=== PATIENT | male | born 1970 | race Caucasian/White ===

== ENCOUNTER 2020-02-08 23:32 | Observation (INO) ==
[2020-02-08] MEDS ORDERED: SODIUM CHLORIDE 0.9% 1000ML 1,000 ML IV ONE (23:47)
[2020-02-08] MEDS ORDERED: ONDANSETRON INJ 2 MG/ML 2 ML VIAL IV STA (23:47)
[2020-02-08] MEDS ORDERED: fentaNYL citrate 100 MCG/2 ML VIAL IV STA (23:47)
--- NOTE | 2020-02-08 23:52 | Emergency Department Note ---
Impression & Plan Spigelian hernia, Incarcerated hernia ED Provider Note Name: MARA REED Age: 49 Sex: M Arrives Via: Walk-In Informant: Patient, ED Provider: Jonny Vanegas MD Chief Complaint: Abdominal Pain Impression: Incarcerated Hernia Spigelian Hernia Medical Decision Making: Pleasant 49 yr old male with acute right abdominal pain this evening after mild right abdominal pain over the last week. History of left inguinal hernia repair a few decades ago with port site at location of pain on right. He has firm tender mass in right mid abdomen consistent with incarcerated hernia. CT emergently done reveals only fat in hernia site without bowel incarceration. He has no evidence of SBO at this time. Lactic Acid mildly elevated consistent with extremis he was in from pain on arrival as well as likely some from hernia which shows faint fat stranding. After narcotics he is feeling better but hernia non-reducible. Reviewed with Gen Surg who agrees with pain control and hospitalization and will further evaluate as inpatient. Patient not septic and pain has been controlled but requires IV narcotics. Patient and comfortable with plan. Prior Medical Record and Triage/Nursing Notes reviewed by Me Additional history obtained from chart Differentials:Appendicitis, testicular torsion, infections, diverticulitis, UTI, obstruction, mesenteric ischemia, aortic pathology, inflammatory bowel disease, renal colic, PUD, pancreatitis, biliary pathology, hernia, volvulus, constipation, as well as other pathologies. Vital Signs: reviewed and remarkable for HTN Interventions: saline lock, dilaudid 1mg IV x 2, Zofran 4mg IV, nss bolus 2L IV Labs:Reviewed and remarkable for mildly elevated lactic acid Imaging:[facility] Radiologist interpretation reviewed by me: "ADDENDUM - Added by Concepción Gonzalez MD on 02/09/2020 12:56 AM (-07:00) Right lateral abdominal wall fat-containing spigelian hernia with a narrow neck of 2 mm. . Fat component of the hernia measures 4.3 x 5.3 x 5.5 cm. Faint stranding within the fat is noted. CT ABDOMEN & PELVIS With Contrast: Contracted gallbladder. Scattered left side, mild sigmoid diverticulosis. Negative for diverticulitis. Normal appendix. Small bilateral renal cortical cysts. Left inguinal post hernia repair changes. 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 Moderately severe right and left L4-5 neural foramina stenosis. Radiologist: Concepción Gonzalez MD" Consults:Dr Deyvi Carias Gen Surg: Discussed incarcerated fat hernia with mild lactic acid elevation - hospitalist eval and pain control advised Dr Kodi Carias Hospitalist Plan: Disposition:Hospitalization. Condition: Good Blood pressure:Elevated - Referred to Hospitalist Prescriptions:none PDMP: n/a History of Present Illness:49 / male with right abdominal pain. 1 week of abdominal discomfort. RLQ and sharp in nature. Tonight severe pain radiating to back and left side as well. Associated nausea. Movement makes worse, rest makes slightly better. 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 No previous pain like this. Previous left inguinal hernia repair. No recent trauma nor injuries. No recent vomiting. Notes normal BM this morning. Denies chest pain, sob, cough, fevers, headache, neck pain, leg pain, rashes, swelling, syncope, nor other symptoms. ROS: See above HPI for pertinent positives & negatives. A total of 10 systems reviewed and were otherwise negative. Past Medical History:HTN, Anxiety Past Surgical History:Left inguinal Hernia repair, left foot surgery Family History:Mother/Father with cancer and CAD Social History:Lives with , occasional cigar, no cigarettes, occasional ETOH, no drugs. 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 EYES: No scleral icterus, unremarkable pupils. ENT: Mucous membranes moist, no nasal congestion. NECK: No masses appreciated, nomeningismus, trachea is midline. RESPIRATORY: No dyspnea. Clear to auscultation and equal bilaterally. No wheeze, no rhonchi. CARDIOVASCULAR: Regular rate and rhythm.No murmurs, rubs, gallops appreciated. GASTROINTESTINAL: Tennis ball sized firm mass with severe TTP Right mid abdomen, hyperactive bowel sounds, vague TTP rest of abdomen BACK: No midline tenderness, no CVA tenderness EXTREMITIES: Normal motion all extremities, no cyanosis, no edema. NEUROLOGIC: Alert and oriented, no acute motor or sensory deficits, no focal weakness, cranial nerves grossly intact. SKIN: No rash, no jaundice, no diaphoresis. PSYCH: Appropriate GCS: 15 ED Course: Times/Reassessments: improvement in pain, unable to reduce hernia, no vomiting Jonny Guilherme, MD Past Med/Surg History Social History Smoking Status: Current some day smoker Tobacco Type: Cigars Hx Alcohol Use: No Hx Substance Use: No Preferred Language: Telugu Communication Ability: Effective Neuropsychology Medical Consultant Required: No Beliefs That Will Affect Care: None marital status: Single Current Living Situation: Significant Other current occupational status: employed Other Information That Helps Us Care for You: No Feels Safe at Home: Yes Safety Concerns: Feels Safe At This Time Allergies Allergies Allergy/AdvReac Type Severity Reaction Status Date / Time Penicillins Allergy Severe SHORTNESS Verified 02/08/20 23:39 OF BREATH Home Meds Home Medications Medication Instructions Recorded Confirmed No Known Home Medications 02/08/20 02/08/20 Results & Data (ED) Vital Signs Vital Signs - 24 hr 02/08/20 23:36 02/09/20 00:48 02/09/20 01:15 Temperature 36.7 C Temperature Source Oral Pulse Rate 107 H Pulse Rate [Right Finger] 80 72 Respiratory Rate 24 15 20 Respiratory Effort / Characteristics Non-Labored Spontaneous Non-Labored Spontaneous Non-Labored Spontaneous Respiratory Depth Normal Normal Normal Respiratory Pattern Regular Blood Pressure 134/72 Blood Pressure [Right Arm] 137/85 141/87 H Blood Pressure Mean 92 Blood Pressure Mean [Right Arm] 102 105 Blood Pressure Position [Right Arm] Lying Lying Pulse Oximetry 98 98 99 Oxygen Delivery Method Room Air Room Air Room Air Sepsis New/Unexplained Change in Mental Status N/A Sepsis Action Taken by Nursing No Action Required Laboratory Data Result diagrams: 02/09/20 05:17 02/08/20 23:47 Lab Results 02/08/20 02/08/20 02/08/20 Range/Units 23:47 23:47 23:47 WBC 6.53 (4.8-10.8) K/uL RBC 4.91 (4.7-6.1) M/uL Hgb 15.6 (14.0-18.0) g/dL POC Hgb (14.0-18.0) g/dl Hct 45.5 (42-52) % POC Hct (42-52) % MCV 92.7 (80-100) fL MCH 31.8 (25-34) pg MCHC 34.3 (32-36) g/dL RDW Std Deviation 47.1 H (36.4-46.3) fL RDW Coeff of Annie 13.8 (11.5-14.5) % Plt Count 243 (130-400) K/uL MPV 10.9 H (7.4-10.4) fL Immature Gran % (Auto) 0.2 % Neut % (Auto) 66.7 % Lymph % (Auto) 20.8 % [place] % (Auto) 9.3 % Eos % (Auto) 2.5 % Baso % (Auto) 0.5 % Neut # (Auto) 4.36 (1.4-6.5) K/uL Lymph # (Auto) 1.36 (1.2-3.4) K/uL [place] # (Auto) 0.61 H (0.11-0.59) K/uL Eos # (Auto) 0.16 (0-0.5) K/uL Baso # (Auto) 0.03 (0-0.2) K/uL Immature Gran # (Auto) 0.01 (0.00-0.02) K/uL PT 10.3 (9.0-12.0) Seconds INR 1.0 (0.9-1.1) APTT 27.3 (21.0-31.0) Seconds PTT Ratio 1.0 POC Sodium (135-144) mmol/L Sodium 144 (136-145) mmol/L POC Potassium (3.3-5.0) mmol/L Potassium 3.5 (3.5-5.1) mmol/L POC Chloride (101-112) mmol/L Chloride 111 H (98-107) mmol/L Carbon Dioxide 23 (21-32) mmol/L POC Total CO2 (24-31) mmol/L Anion Gap 10.0 (3-11) POC Anion Gap (16-25) mmol/L POC BUN (7-18) mg/dl BUN 15 (7-18) mg/dl Creatinine 1.31 (0.6-1.4) mg/dl POC Creatinine (0.6-1.3) mg/dl Est Cr Clr Drug Dosing Not Reportable Est GFR ( Amer) 72.5 Est GFR (Non-Af Amer) 62.6 BUN/Creatinine Ratio 11.3 (10-20) Glucose 113 H (70-99) mg/dl POC Glucose (other) (70-99) mg/dl Lactate (0.4-2.0) mmol/L Calcium 8.6 (8.5-10.1) mg/dl POC Ioniz Calcium Leonel (1.12-1.32) mmol/l Magnesium 2.1 (1.8-2.4) mg/dl Total Bilirubin 0.3 (0.2-1) mg/dl Direct Bilirubin < 0.1 (0-0.2) mg/dl AST 13 L (15-37) U/L ALT 22 (12-78) U/L Alkaline Phosphatase 81 (45-117) U/L Total Protein 7.7 (6.4-8.2) gm/dl Albumin 3.7 (3.4-5.0) gm/dl Lipase 90 (73-393) U/L Urine Color Urine Appearance (Clear) Urine pH (4.5-7.5) Ur Specific [place] (1.000-1.030) Urine Protein (Negative) Urine Glucose (UA) (Negative) Urine Ketones (Negative) Urine Blood (Negative) Urine Nitrite (Negative) Urine Bilirubin (Negative) Urine Urobilinogen (Negative) Ur Leukocyte Esterase (Negative) 02/08/20 02/08/20 02/09/20 Range/Units 23:47 23:52 01:37 WBC (4.8-10.8) K/uL RBC (4.7-6.1) M/uL Hgb (14.0-18.0) g/dL POC Hgb 15.6 (14.0-18.0) g/dl Hct (42-52) % POC Hct 46 (42-52) % MCV (80-100) fL MCH (25-34) pg MCHC (32-36) g/dL RDW Std Deviation (36.4-46.3) fL RDW Coeff of Annie (11.5-14.5) % Plt Count (130-400) K/uL MPV (7.4-10.4) fL Immature Gran % (Auto) % Neut % (Auto) % Lymph % (Auto) % [place] % (Auto) % Eos % (Auto) % Baso % (Auto) % Neut # (Auto) (1.4-6.5) K/uL Lymph # (Auto) (1.2-3.4) K/uL [place] # (Auto) (0.11-0.59) K/uL Eos # (Auto) (0-0.5) K/uL Baso # (Auto) (0-0.2) K/uL Immature Gran # (Auto) (0.00-0.02) K/uL PT (9.0-12.0) Seconds INR (0.9-1.1) APTT (21.0-31.0) Seconds PTT Ratio POC Sodium 142 (135-144) mmol/L Sodium (136-145) mmol/L POC Potassium 3.4 (3.3-5.0) mmol/L Potassium (3.5-5.1) mmol/L POC Chloride 105 (101-112) mmol/L Chloride (98-107) mmol/L Carbon Dioxide (21-32) mmol/L POC Total CO2 19 L (24-31) mmol/L Anion Gap (3-11) POC Anion Gap 21.0 (16-25) mmol/L POC BUN 15 (7-18) mg/dl BUN (7-18) mg/dl Creatinine (0.6-1.4) mg/dl POC Creatinine 1.2 (0.6-1.3) mg/dl Est Cr Clr Drug Dosing Est GFR ( Amer) Est GFR (Non-Af Amer) BUN/Creatinine Ratio (10-20) Glucose (70-99) mg/dl POC Glucose (other) 113 H (70-99) mg/dl Lactate 2.4 H* 1.3 (0.4-2.0) mmol/L Calcium (8.5-10.1) mg/dl POC Ioniz Calcium Leonel 1.13 (1.12-1.32) mmol/l Magnesium (1.8-2.4) mg/dl Total Bilirubin (0.2-1) mg/dl Direct Bilirubin (0-0.2) mg/dl AST (15-37) U/L ALT (12-78) U/L Alkaline Phosphatase (45-117) U/L Total Protein (6.4-8.2) gm/dl Albumin (3.4-5.0) gm/dl Lipase (73-393) U/L Urine Color Urine Appearance (Clear) Urine pH (4.5-7.5) Ur Specific [place] (1.000-1.030) Urine Protein (Negative) Urine Glucose (UA) (Negative) Urine Ketones (Negative) Urine Blood (Negative) Urine Nitrite (Negative) Urine Bilirubin (Negative) Urine Urobilinogen (Negative) Ur Leukocyte Esterase (Negative) 02/09/20 Range/Units 02:00 WBC (4.8-10.8) K/uL RBC (4.7-6.1) M/uL Hgb (14.0-18.0) g/dL POC Hgb (14.0-18.0) g/dl Hct (42-52) % POC Hct (42-52) % MCV (80-100) fL MCH (25-34) pg MCHC (32-36) g/dL RDW Std Deviation (36.4-46.3) fL RDW Coeff of Annie (11.5-14.5) % Plt Count (130-400) K/uL MPV (7.4-10.4) fL Immature Gran % (Auto) % Neut % (Auto) % Lymph % (Auto) % [place] % (Auto) % Eos % (Auto) % Baso % (Auto) % Neut # (Auto) (1.4-6.5) K/uL Lymph # (Auto) (1.2-3.4) K/uL [place] # (Auto) (0.11-0.59) K/uL Eos # (Auto) (0-0.5) K/uL Baso # (Auto) (0-0.2) K/uL Immature Gran # (Auto) (0.00-0.02) K/uL PT (9.0-12.0) Seconds INR (0.9-1.1) APTT (21.0-31.0) Seconds PTT Ratio POC Sodium (135-144) mmol/L Sodium (136-145) mmol/L POC Potassium (3.3-5.0) mmol/L Potassium (3.5-5.1) mmol/L POC Chloride (101-112) mmol/L Chloride (98-107) mmol/L Carbon Dioxide (21-32) mmol/L POC Total CO2 (24-31) mmol/L Anion Gap (3-11) POC Anion Gap (16-25) mmol/L POC BUN (7-18) mg/dl BUN (7-18) mg/dl Creatinine (0.6-1.4) mg/dl POC Creatinine (0.6-1.3) mg/dl Est Cr Clr Drug Dosing Est GFR ( Amer) Est GFR (Non-Af Amer) BUN/Creatinine Ratio (10-20) Glucose (70-99) mg/dl POC Glucose (other) (70-99) mg/dl Lactate (0.4-2.0) mmol/L Calcium (8.5-10.1) mg/dl POC Ioniz Calcium Leonel (1.12-1.32) mmol/l Magnesium (1.8-2.4) mg/dl Total Bilirubin (0.2-1) mg/dl Direct Bilirubin (0-0.2) mg/dl AST (15-37) U/L ALT (12-78) U/L Alkaline Phosphatase (45-117) U/L Total Protein (6.4-8.2) gm/dl Albumin (3.4-5.0) gm/dl Lipase (73-393) U/L Urine Color Yellow Urine Appearance Clear (Clear) Urine pH 6.5 (4.5-7.5) Ur Specific [place] 1.037 H (1.000-1.030) Urine Protein Negative (Negative) Urine Glucose (UA) Negative (Negative) Urine Ketones Negative (Negative) Urine Blood Negative (Negative) Urine Nitrite Negative (Negative) Urine Bilirubin Negative (Negative) Urine Urobilinogen Negative (Negative) Ur Leukocyte Esterase Negative (Negative) Administered Medications Lactated Ringer's (Lr) 1,000 mls @ 60 mls/hr IV [id number] [facility] Stop: 03/10/20 04:14 Last Admin: 02/09/20 04:15 Dose: 60 mls/hr Documented by: [id number] Discontinued Medications Fentanyl Citrate (Fentanyl Citrate) 100 mcg IV NOW STA Stop: 02/08/20 23:48 Last Admin: 02/08/20 23:53 Dose: 100 mcg Documented by: [id number] Hydromorphone HCl (Dilaudid) 1 mg IV NOW STA Stop: 02/09/20 00:52 Last Admin: 02/09/20 00:56 Dose: 1 mg Documented by: [id number] Sodium Chloride (Nss 1000ml) 1,000 mls @ 999 mls/hr IV .Q1H1M ONE Stop: 02/09/20 00:47 Last Infusion: 02/09/20 00:48 Dose: 0 mls/hr Documented by: [id number] Admin: 02/08/20 23:53 Dose: 999 mls/hr Documented by: [id number] Sodium Chloride (Nss 1000ml) 1,000 mls @ 999 mls/hr IV .Q1H1M ONE Stop: 02/09/20 01:51 Last Infusion: 02/09/20 01:52 Dose: 0 mls/hr Documented by: [id number] Admin: 02/09/20 00:56 Dose: 999 mls/hr Documented by: [id number] Lorazepam (Ativan) 1 mg in 2 mls @ 2 mls/min IV NOW STA Stop: 02/09/20 01:11 Last Admin: 02/09/20 01:15 Dose: 2 mls/min Documented by: [id number] Sodium Chloride (Nss 1000ml) 1,000 mls @ 125 mls/hr IV .Q8H [facility] Stop: 03/10/20 01:14 Last Admin: 02/09/20 01:42 Dose: Not Given Documented by: [id number] Lactated Ringer's (Lr) 1,000 mls @ 200 mls/hr IV .Q5H STA Stop: 02/09/20 06:24 Last Infusion: 02/09/20 04:15 Dose: 0 mls/hr Documented by: [id number] Admin: 02/09/20 01:57 Dose: 200 mls/hr Documented by: [id number] Ioversol (Optiray 320 100ml) 100 ml IV ONCE ONE Stop: 02/09/20 00:39 Last Admin: 02/09/20 00:38 Dose: 93 ml Documented by: [id number] Ondansetron HCl (Zofran) 4 mg IV NOW STA Stop: 02/08/20 23:48 Last Admin: 02/08/20 23:53 Dose: 4 mg Documented by: [id number] Discharge Plan Visit Data *Final* Discharge Date/Time: 02/09/20 02:47 Chief Complaint: Abdominal Pain Stated Complaint: SEVERE LWR ABDOMINAL PAIN ED Provider: Jonny Vanegas Discharge Problem: Spigelian hernia, Incarcerated hernia Patient Disposition: Admitted As Inpatient Discharge Instructions Interventions: ED Discharge Assessment Last Done: 02/09/20 02:47
[2020-02-08 23:59] LABS: Basophils # (auto) 0.03 K/uL (0-0.2); Basophils % (auto) 0.5 %; Eosinophils # (auto) 0.16 K/uL (0-0.5); Eosinophils % (auto) 2.5 %; Hematocrit (blood only) 45.5 % (42-52); Hemoglobin 15.6 g/dL (14.0-18.0); Immature Granulocytes # (auto) 0.01 K/uL (0.00-0.02); Immature Granulocytes % (auto) 0.2 %; Lymphocytes # (auto) 1.36 K/uL (1.2-3.4); Lymphocytes % (auto) 20.8 %; Mean Corpuscular Hemoglobin 31.8 pg (25-34); Mean Corpuscular Hgb Conc 34.3 g/dL (32-36); Mean Corpuscular Volume 92.7 fL (80-100); Mean Platelet Volume 10.9 fL (7.4-10.4); Monocytes # (auto) 0.61 K/uL (0.11-0.59); Monocytes % (auto) 9.3 %; Neutrophils # (auto) 4.36 K/uL (1.4-6.5); Neutrophils % (auto) 66.7 %; Platelet Count 243 K/uL (130-400); RDW Coefficient of Variation 13.8 % (11.5-14.5); RDW Standard Deviation 47.1 fL (36.4-46.3); Red Blood Count 4.91 M/uL (4.7-6.1); White Blood Count 6.53 K/uL (4.8-10.8)
[2020-02-09 00:05] LABS: iSTAT Creatinine 1.2 mg/dl (0.6-1.3); iSTAT Hemoglobin 15.6 g/dl (14.0-18.0); iSTAT Ionized Calcium 1.13 mmol/l (1.12-1.32); iSTAT Potassium 3.4 mmol/L (3.3-5.0)
[2020-02-09 00:10] LABS: Partial Thromboplastin Time 27.3 Seconds (21.0-31.0); Prothrombin Time 10.3 Seconds (9.0-12.0)
[2020-02-09 00:16] LABS: Alanine Aminotransferase 22 U/L (12-78); Albumin Level 3.7 gm/dl (3.4-5.0); Aspartate Aminotransferase 13 U/L (15-37); BUN Creatinine Ratio 11.3 (10-20); Bilirubin Direct < 0.1 mg/dl (0-0.2); Blood Urea Nitrogen 15 mg/dl (7-18); Calcium 8.6 mg/dl (8.5-10.1); Carbon Dioxide 23 mmol/L (21-32); Chloride 111 mmol/L (98-107); Est GFR (African American) 72.5; Est GFR (Non-African American) 62.6; Glucose 113 mg/dl (70-99); Lipase 90 U/L (73-393); Magnesium 2.1 mg/dl (1.8-2.4); Potassium 3.5 mmol/L (3.5-5.1); Sodium 144 mmol/L (136-145)
[2020-02-09 00:18] LABS: Alkaline Phosphatase 81 U/L (45-117); Bilirubin,Total 0.3 mg/dl (0.2-1); Total Protein 7.7 gm/dl (6.4-8.2)
[2020-02-09] MEDS ORDERED: IOVERSOL 100ml IV ONE (00:38)
[2020-02-09] MEDS ORDERED: HYDROmorphone INJ 1 MG/ML SYRINGE IV STA (00:51)
[2020-02-09] MEDS ORDERED: SODIUM CHLORIDE 0.9% 1000ML 1,000 ML IV ONE (00:51)
[2020-02-09] MEDS ORDERED: LORazepam 1 MG/2 ML VIAL IV STA (01:10)
[2020-02-09] MEDS ORDERED: SODIUM CHLORIDE 0.9% 1000ML 1,000 ML IV SCH (01:15)
[2020-02-09] MEDS ORDERED: KETOROLAC TROMETHAMINE 15 MG/ML VIAL IV PRN (01:17)
[2020-02-09] MEDS ORDERED: PROMETHAZINE HCL 12.5 MG in SODIUM CHLORIDE 0.9% 50 ML IV PRN (01:17)
[2020-02-09] MEDS ORDERED: ACETAMINOPHEN 325 MG TAB PO PRN (01:17)
[2020-02-09] MEDS ORDERED: TRAMADOL HCL 50 MG TABLET PO PRN (01:17)
[2020-02-09] MEDS ORDERED: LACTATED RINGER'S 1,000 ML IV STA (01:25)
[2020-02-09 02:09] LABS: Appearance Urine Clear (Clear); Bilirubin Urine Negative (Negative); Blood Urine Negative (Negative); Color Urine Yellow; Glucose Urine UA Negative (Negative); Ketones Urine Negative (Negative); Leukocyte Esterase Urine Negative (Negative); Nitrite Urine Negative (Negative); Protein Urine Negative (Negative); Specific Gravity Urine 1.037 (1.000-1.030); Urobilinogen Urine Negative (Negative); pH Urine 6.5 (4.5-7.5)
--- NOTE | 2020-02-09 02:14 | History & Physical Report ---
Date of Service February 09, 2020 Assessment & Plan (1) Abdominal pain: Possible incarcerated spigelian hernia on initial CT read Hypertension, elevated secondary to discomfort Not on maintenance meds at home. 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 Carnes.) Bowel rest until patient seen by surgeon. IVF, analgesia Initiate lisinopril maintenance Rx if BP continues to be uncontrolled. DVT prophylaxis with SCDs Full code Text document was generated using [employer] voice recognition software. It may contain grammatical or spelling errors. Kindly contact undersigned for clarification of any documentation item in question. History of Present Illness Chief Complaint: Abdominal pain Primary Care Provider: None History obtained from patient, family, and records. Medical history significant for hypertension. One week history of achy intermittent right lower quadrant abdominal discomfort going to his back and across his belly associated with nausea. No fever, no chills. No chest pain, no S OB. Patient brought to ER by with worsening discomfort. 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 Allergies Allergy/AdvReac Type Severity Reaction Status Date / Time Penicillins Allergy Severe SHORTNESS Verified 02/08/20 23:39 OF BREATH Home Medications Home Medications Medication Instructions Recorded Confirmed Type No Known Home Medications 02/08/20 02/08/20 History Past Med/Surg History Social History Smoking Status: Current some day smoker Tobacco Type: Cigars Hx Alcohol Use: No Hx Substance Use: No Preferred Language: Albanian Communication Ability: Effective Communications Programmer Required: No Beliefs That Will Affect Care: None marital status: Single Current Living Situation: Significant Other current occupational status: employed Other Information That Helps Us Care for You: No Feels Safe at Home: Yes Safety Concerns: Feels Safe At This Time Review of Systems Review of Systems: As per HPI, all 10 systems reviewed, all other ROS negative Physical Exam Physical Exam: GENERAL: Comfortable, obese, no respiratory distress SKIN: Normal color, warm HEENT: [place] palpebral conjunctivae, no ptosis, dry buccal mucosa NECK : Supple, short neck, no tenderness CHEST : CTA, no tenderness HEART : RRR, no obvious murmurs ABDOMEN: Some distention, right lower quadrant fullness/tenderness EXTREMITIES : No LE swelling/tenderness, no other conspicuous deformities noted NEUROLOGIC : Coherent, no facial asymmetry, no other gross focality Results & Data Results & Data ([facility]) Vital Signs (Past 12 Hours) Vital Signs Temp Pulse Pulse Resp BP BP Pulse Ox 02/09/20 01:15 72 20 141/87 H 99 02/09/20 00:48 80 15 137/85 98 02/08/20 23:36 36.7 C 107 H 24 134/72 98 Laboratory Results Laboratory Results WBC 6.53 K/uL (4.8-10.8) 02/08/20 23:47 RBC 4.91 M/uL (4.7-6.1) 02/08/20 23:47 Hgb 15.6 g/dL (14.0-18.0) 02/08/20 23:47 POC Hgb 15.6 g/dl (14.0-18.0) 02/08/20 23:52 Hct 45.5 % (42-52) 02/08/20 23:47 POC Hct 46 % (42-52) 02/08/20 23:52 MCV 92.7 fL (80-100) 02/08/20 23:47 MCH 31.8 pg (25-34) 02/08/20 23:47 MCHC 34.3 g/dL (32-36) 02/08/20 23:47 RDW Std Deviation 47.1 fL (36.4-46.3) H 02/08/20 23:47 RDW Coeff of Annie 13.8 % (11.5-14.5) 02/08/20 23:47 Plt Count 243 K/uL (130-400) 02/08/20 23:47 MPV 10.9 fL (7.4-10.4) H 02/08/20 23:47 Immature Gran % (Auto) 0.2 % 02/08/20 23:47 Neut % (Auto) 66.7 % 02/08/20 23:47 Lymph % (Auto) 20.8 % 02/08/20 23:47 [place] % (Auto) 9.3 % 02/08/20 23:47 Eos % (Auto) 2.5 % 02/08/20 23:47 Baso % (Auto) 0.5 % 02/08/20 23:47 Neut # (Auto) 4.36 K/uL (1.4-6.5) 02/08/20 23:47 Lymph # (Auto) 1.36 K/uL (1.2-3.4) 02/08/20 23:47 [place] # (Auto) 0.61 K/uL (0.11-0.59) H 02/08/20 23:47 Eos # (Auto) 0.16 K/uL (0-0.5) 02/08/20 23:47 Baso # (Auto) 0.03 K/uL (0-0.2) 02/08/20 23:47 Immature Gran # (Auto) 0.01 K/uL (0.00-0.02) 02/08/20 23:47 PT 10.3 Seconds (9.0-12.0) 02/08/20 23:47 INR 1.0 (0.9-1.1) 02/08/20 23:47 APTT 27.3 Seconds (21.0-31.0) 02/08/20 23:47 PTT Ratio 1.0 02/08/20 23:47 POC Sodium 142 mmol/L (135-144) 02/08/20 23:52 Sodium 144 mmol/L (136-145) 02/08/20 23:47 POC Potassium 3.4 mmol/L (3.3-5.0) 02/08/20 23:52 Potassium 3.5 mmol/L (3.5-5.1) 02/08/20 23:47 POC Chloride 105 mmol/L (101-112) 02/08/20 23:52 Chloride 111 mmol/L (98-107) H 02/08/20 23:47 Carbon Dioxide 23 mmol/L (21-32) 02/08/20 23:47 POC Total CO2 19 mmol/L (24-31) L 02/08/20 23:52 Anion Gap 10.0 (3-11) 02/08/20 23:47 POC Anion Gap 21.0 mmol/L (16-25) 02/08/20 23:52 POC BUN 15 mg/dl (7-18) 02/08/20 23:52 BUN 15 mg/dl (7-18) 02/08/20 23:47 Creatinine 1.31 mg/dl (0.6-1.4) 02/08/20 23:47 POC Creatinine 1.2 mg/dl (0.6-1.3) 02/08/20 23:52 Est Cr Clr Drug Dosing Not Reportable 02/08/20 23:47 Est GFR ( Amer) 72.5 02/08/20 23:47 Est GFR (Non-Af Amer) 62.6 02/08/20 23:47 BUN/Creatinine Ratio 11.3 (10-20) 02/08/20 23:47 Glucose 113 mg/dl (70-99) H 02/08/20 23:47 POC Glucose (other) 113 mg/dl (70-99) H 02/08/20 23:52 Lactate 1.3 mmol/L (0.4-2.0) 02/09/20 01:37 Calcium 8.6 mg/dl (8.5-10.1) 02/08/20 23:47 POC Ioniz Calcium Leonel 1.13 mmol/l (1.12-1.32) 02/08/20 23:52 Magnesium 2.1 mg/dl (1.8-2.4) 02/08/20 23:47 Total Bilirubin 0.3 mg/dl (0.2-1) 02/08/20 23:47 Direct Bilirubin < 0.1 mg/dl (0-0.2) 02/08/20 23:47 AST 13 U/L (15-37) L 02/08/20 23:47 ALT 22 U/L (12-78) 02/08/20 23:47 Alkaline Phosphatase 81 U/L (45-117) 02/08/20 23:47 Total Protein 7.7 gm/dl (6.4-8.2) 02/08/20 23:47 Albumin 3.7 gm/dl (3.4-5.0) 02/08/20 23:47 Lipase 90 U/L (73-393) 02/08/20 23:47 Urine Color Yellow 02/09/20 02:00 Urine Appearance Clear (Clear) 02/09/20 02:00 Urine pH 6.5 (4.5-7.5) 02/09/20 02:00 Ur Specific [place] 1.037 (1.000-1.030) H 02/09/20 02:00 Urine Protein Negative (Negative) 02/09/20 02:00 Urine Glucose (UA) Negative (Negative) 02/09/20 02:00 Urine Ketones Negative (Negative) 02/09/20 02:00 Urine Blood Negative (Negative) 02/09/20 02:00 Urine Nitrite Negative (Negative) 02/09/20 02:00 Urine Bilirubin Negative (Negative) 02/09/20 02:00 Urine Urobilinogen Negative (Negative) 02/09/20 02:00 Ur Leukocyte Esterase Negative (Negative) 02/09/20 02:[address] abdomen pelvis initial read: Contracted gallbladder. Sigmoid diverticulosis. Left inguinal post hernia repair changes. Right lateral abdominal wall fat- containing spigelian hernia with narrow neck of 2 mm. Fat component of hernia measuring 4.3 x 5.3 x 5.5 cm. Faint stranding within the fat is noted.
[2020-02-09] MEDS ORDERED: LORazepam 0.25 MG/0.5 ML VIAL IV PRN (03:21)
[2020-02-09] MEDS: LACTATED RINGER'S 1,000 ML IV SCH ×2 (04:15→18:36)
[2020-02-09 05:45] LABS: Basophils # (auto) 0.01 K/uL (0-0.2); Basophils % (auto) 0.2 %; Eosinophils # (auto) 0.25 K/uL (0-0.5); Eosinophils % (auto) 4.1 %; Hemoglobin 13.8 g/dL (14.0-18.0); Lymphocytes # (auto) 1.58 K/uL (1.2-3.4); Lymphocytes % (auto) 26.1 %; Mean Corpuscular Hemoglobin 31.5 pg (25-34); Mean Corpuscular Hgb Conc 33.7 g/dL (32-36); Mean Corpuscular Volume 93.6 fL (80-100); Mean Platelet Volume 10.7 fL (7.4-10.4); Monocytes # (auto) 0.55 K/uL (0.11-0.59); Monocytes % (auto) 9.1 %; Neutrophils # (auto) 3.67 K/uL (1.4-6.5); Neutrophils % (auto) 60.5 %; Platelet Count 209 K/uL (130-400); RDW Coefficient of Variation 13.7 % (11.5-14.5); RDW Standard Deviation 47.2 fL (36.4-46.3); Red Blood Count 4.38 M/uL (4.7-6.1); White Blood Count 6.06 K/uL (4.8-10.8)
[2020-02-09 06:09] LABS: BUN Creatinine Ratio 9.8 (10-20); Calcium 7.9 mg/dl (8.5-10.1); Creatinine Clr Calc Pharmacy 83.1 ml/min; Est GFR (African American) 84.9; Est GFR (Non-African American) 73.3; Potassium 3.8 mmol/L (3.5-5.1)
[2020-02-09] MEDS ORDERED: LACTATED RINGER'S 1,000 ML IV SCH (06:30)
--- NOTE | 2020-02-09 07:48 | CT Scan Report ---
CT SCAN OF THE ABDOMEN AND PELVIS WITH IV CONTRAST CLINICAL HISTORY: Right-sided abdominal pain. COMPARISON STUDY: No priors. TECHNIQUE: Following the IV administration of 93 cc of Optiray 320, CT scan of the abdomen and pelvi s is performed from the lung bases to the proximal femora. Images are reviewed in the axial, sagittal , and coronal planes. IV contrast was administered without complication. A dose lowering technique wa s utilized adhering to the principles of ALARA. CT DOSE: 883.46 mGy.cm FINDINGS: Lung bases: The heart is normal in size and without pericardial effusion. The lung bases are clear no ting dependent atelectasis. There is a small hiatal hernia. Liver: The contrast-enhanced liver is normal in size, contour, and attenuation. There is no intrahepa tic biliary ductal dilatation. The hepatic veins and portal veins are patent. Gallbladder: Unremarkable. Spleen: Normal in size and attenuation. Pancreas: Unremarkable. Adrenal glands: Unremarkable. Kidneys: The contrast enhanced kidneys are normal in size and without hydronephrosis. The kidneys enh ance symmetrically. Scattered subcentimeter cortical hypodensities likely represent cysts but are too small for definitive characterization. Parapelvic cysts are noted on the left. Abdominal vasculature: The abdominal aorta is normal in course and caliber. Bowel: There is mild colonic diverticulosis without CT evidence of acute diverticulitis. No bowel obs truction is identified. The appendix is well-visualized and normal. Peritoneum: There is no intraperitoneal free air or abdominal ascites. There is a fat-containing umbi lical hernia. There is a fat-containing hernia in the right lower quadrant seen on image #249. Minima l stranding is noted in the hernia sac. Lymphadenopathy: None. Pelvic viscera: The bladder, prostate, and seminal vesicles are normal as visualized. There is eviden ce of previous left inguinal herniorrhaphy. Skeletal structures: No lytic or blastic lesions are seen. Mild lumbosacral spondylosis is noted. The re are bilateral pars defects at L5. IMPRESSION: 1. There is a fat-containing hernia in the right lower quadrant. Minimal stranding is noted within th e hernia sac. 2. Mild colonic diverticulosis without CT evidence of acute diverticulitis. 3. Additional findings as above. ACT 112: Negative or not required by law. Electronically signed by: Phillip Bae M.D. 02/09/2020 7:46 AM
--- NOTE | 2020-02-09 09:25 | Surgery Consultation ---
Date of Consultation February 09, 2020 Assessment & Plan (1) Spigelian hernia: pt is a 49 year-old male who was admitted to hospital for spigelian hernia with incarcerated, IMP: abdominal pain, spigelian hernia, incarcerated hernia, Plan, I recommend to do open repair spigelian hernia possible with mesh, D/W benefits, risks and alternatives of the surgery, the risks - infection, bleeding, hernia recurrence, complications relate to mesh, pt and his family member understood, they agree with the surgery, i answered all questions, (2) Incarcerated hernia: (3) Abdominal pain: History of Present Illness Attending Physician: CC: right side abdominal pain with lump History of Present Illness: 49 / male with right abdominal pain. 1 week of abdominal discomfort. RLQ and sharp in nature. Tonight severe pain radiating to back and left side as well. Associated nausea. Movement makes worse, rest makes slightly better. 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 No previous pain like this. Previous left inguinal hernia repair. No recent trauma nor injuries. No recent vomiting. Notes normal BM this morning. Denies chest pain, sob, cough, fevers, headache, neck pain, leg pain, rashes, swelling, syncope, nor other symptoms. I ( Bere Starkey MD ) reviewed pt's H/P, labs, CT Scan with pt, pt is still have right side abdominal pain with lump, ROS: See above HPI for pertinent positives & negatives. A total of 10 systems reviewed and were otherwise negative. Past Medical History: HTN, Anxiety Past Surgical History: Left inguinal Hernia repair, left foot surgery Family History: Mother/Father with cancer and CAD Social History: Lives with , occasional cigar, no cigarettes, occasional ETOH, no drugs. 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 Beliefs That Will Affect Care: None marital status: Single Current Living Situation: Significant Other current occupational status: employed Other Information That Helps Us Care for You: No Feels Safe at Home: Yes Safety Concerns: Feels Safe At This Time Review of Systems Review of Systems: All systems reviewed & are unremarkable except as noted in HPI & below Constitutional: as per Subjective / HPI Eyes: as per Subjective / HPI Ear, Nose, Mouth, Throat: as per Subjective / HPI Respiratory: as per Subjective / HPI Cardiovascular: as per Subjective / HPI Additional Comments: HTN Gastrointestinal: as per Subjective / HPI repair left inguinal hernia Genitourinary: + as per Subjective / HPI Musculoskeletal: as per Subjective / HPI Integumentary: as per Subjective / HPI Neurologic: as per Subjective / HPI Psychiatric: as per Subjective / HPI Endocrine: as per Subjective / HPI Hematologic / Lymphatic: as per Subjective / HPI Physical Exam Constitutional: WD/WN, vitals as above well developed and well nourished Eyes: PERRL, conjunctivae normal, anicteric sclerae ENMT: external ear and nose normal, oropharynx normal Neck: trachea midline, no thyromegaly Respiratory: normal respiratory effort, lungs clear to auscultation Cardiovascular: RRR, no murmur, no edema Rate/Rhythm: regular rate and regular rhythm Heart Sounds: normal S1 and normal S2 Gastrointestinal (Abdomen): tenderness at right side abdominal, palpable mass on right side abdominal wall, no rebound pain, no distend, BS + Musculoskeletal: no cyanosis or clubbing, extremities motor strength 5/5 Skin: no rashes, warm and dry Neurologic: patellar DTR's 2+ bilat, sensation intact Psychiatric: Orientation: alert and oriented x 3 Results & Data Vital Signs (Past 12 Hours) Vital Signs Temp Pulse Pulse Resp BP BP BP 02/09/20 07:05 36.6 C 54 L 16 144/87 H 02/09/20 03:00 36.5 C 58 L 18 156/87 H 02/09/20 02:47 58 L 16 146/89 H 02/09/20 01:15 72 20 141/87 H 02/09/20 00:48 80 15 137/85 02/08/20 23:36 36.7 C 107 H 24 134/72 Pulse Ox 02/09/20 07:05 100 02/09/20 03:00 100 02/09/20 02:47 97 02/09/20 01:15 99 02/09/20 00:48 98 02/08/20 23:36 98 Laboratory Results Abnormal lab results 02/08/20 02/08/20 02/08/20 Range/Units 23:47 23:47 23:47 RBC (4.7-6.1) M/uL Hgb (14.0-18.0) g/dL Hct (42-52) % RDW Std Deviation 47.1 H (36.4-46.3) fL MPV 10.9 H (7.4-10.4) fL [place] # (Auto) 0.61 H (0.11-0.59) K/uL Chloride 111 H (98-107) mmol/L POC Total CO2 (24-31) mmol/L BUN/Creatinine Ratio (10-20) Glucose 113 H (70-99) mg/dl POC Glucose (other) (70-99) mg/dl Lactate 2.4 H* (0.4-2.0) mmol/L Calcium (8.5-10.1) mg/dl AST 13 L (15-37) U/L Ur Specific [place] (1.000-1.030) 02/08/20 02/09/20 02/09/20 Range/Units 23:52 02:00 05:17 RBC 4.38 L (4.7-6.1) M/uL Hgb 13.8 L (14.0-18.0) g/dL Hct 41.0 L (42-52) % RDW Std Deviation 47.2 H (36.4-46.3) fL MPV 10.7 H (7.4-10.4) fL [place] # (Auto) (0.11-0.59) K/uL Chloride (98-107) mmol/L POC Total CO2 19 L (24-31) mmol/L BUN/Creatinine Ratio (10-20) Glucose (70-99) mg/dl POC Glucose (other) 113 H (70-99) mg/dl Lactate (0.4-2.0) mmol/L Calcium (8.5-10.1) mg/dl AST (15-37) U/L Ur Specific [place] 1.037 H (1.000-1.030) 02/09/20 Range/Units 05:17 RBC (4.7-6.1) M/uL Hgb (14.0-18.0) g/dL Hct (42-52) % RDW Std Deviation (36.4-46.3) fL MPV (7.4-10.4) fL [place] # (Auto) (0.11-0.59) K/uL Chloride 111 H (98-107) mmol/L POC Total CO2 (24-31) mmol/L BUN/Creatinine Ratio 9.8 L (10-20) Glucose (70-99) mg/dl POC Glucose (other) (70-99) mg/dl Lactate (0.4-2.0) mmol/L Calcium 7.9 L (8.5-10.1) mg/dl AST (15-37) U/L Ur Specific [place] (1.000-1.030) Diagnostic Findings CT SCAN OF THE ABDOMEN AND PELVIS WITH IV CONTRAST CLINICAL HISTORY: Right-sided abdominal pain. COMPARISON STUDY: No priors. TECHNIQUE: Following the IV administration of 93 cc of Optiray 320, CT scan of the abdomen and pelvis is performed from the lung bases to the proximal femora. Images are reviewed in the axial, sagittal, and coronal planes. IV contrast was administered without complication. A dose lowering technique was utilized adhering to the principles of ALARA. CT DOSE: 883.46 mGy.cm FINDINGS: Lung bases: The heart is normal in size and without pericardial effusion. The lung bases are clear noting dependent atelectasis. There is a small hiatal hernia. Liver: The contrast-enhanced liver is normal in size, contour, and attenuation. There is no intrahepatic biliary ductal dilatation. The hepatic veins and portal veins are patent. Gallbladder: Unremarkable. Spleen: Normal in size and attenuation. Pancreas: Unremarkable. Adrenal glands: Unremarkable. Kidneys: The contrast enhanced kidneys are normal in size and without hydronephrosis. The kidneys enhance symmetrically. Scattered subcentimeter cortical hypodensities likely represent cysts but are too small for definitive characterization. Parapelvic cysts are noted on the left. Abdominal vasculature: The abdominal aorta is normal in course and caliber. Bowel: There is mild colonic diverticulosis without CT evidence of acute diverticulitis. No bowel obstruction is identified. The appendix is well- visualized and normal. Peritoneum: There is no intraperitoneal free air or abdominal ascites. There is a fat-containing umbilical hernia. There is a fat-containing hernia in the right lower quadrant seen on image #[id number]. Minimal stranding is noted in the hernia sac. Lymphadenopathy: None. Pelvic viscera: The bladder, prostate, and seminal vesicles are normal as visualized. There is evidence of previous left inguinal herniorrhaphy. Skeletal structures: No lytic or blastic lesions are seen. Mild lumbosacral spondylosis is noted. There are bilateral pars defects at L5. IMPRESSION: 1. There is a fat-containing hernia in the right lower quadrant. Minimal stranding is noted within the hernia sac. 2. Mild colonic diverticulosis without CT evidence of acute diverticulitis. 3. Additional findings as above.
--- NOTE | 2020-02-09 11:00 | Hospitalist Progress Note ---
Date of Service February 09, 2020 Assessment & Plan (1) Abdominal pain: (2) Incarcerated hernia: Present on admission with worsening right side abdominal pain CT abd/pelvis showed a fat-containing hernia in the right lower quadrant. Minimal stranding is noted within the hernia sac. 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 Able to climb few flight of stairs and walk few blocks without discomfort Denies any chest pain, palpitation Pt has a functional capacity with a METS greater than 4 Procedure risks discussed with patient in details by the surgeon Stable to proceed with the procedure Continue main management and IV fluid Will keep NPO for now since anticipating surgery later Elevate lactate No source of infection Pt is afebrile and no Leukocytosis Received IVF Lactate normalize Elevate Blood Pressure Possible related to pain and hospital Not on any BP med Will consider to start on a low BP med if BP remains elevating DVT px on SCD (Anticipate surgery ) CODE STATUS FULL CODE Admission and Anticipated Discharge Date Admission Date: February 09, 2020 Subjective Pt was seen and examined Lying in bed with no distress Pt said that his abdominal pain a little better Pt said that his last BM was yesterday Denies any chest pain, palpitation, dizziness and SOB Physical Exam Physical Exam: General- No acute distress Head- atraumatic Eyes- PERRL, EOMI, ENT- oropharynx clear Neck- supple, no JVD Lungs- clear to auscultation Heart- regular rhythm; no murmur Abdomen- normal bowel sounds, soft, +R sided tender Extremities- no calf tenderness Neuro- alert, oriented x 3; PERRL, EOMI; no facial palsy; no dysarthria Skin- warm & dry Results & Data Results & Data ([facility]) Vital Signs (Past 12 Hours) Vital Signs Temp Pulse Pulse Resp BP BP BP 02/09/20 07:05 36.6 C 54 L 16 144/87 H 02/09/20 03:00 36.5 C 58 L 18 156/87 H 02/09/20 02:47 58 L 16 146/89 H 02/09/20 01:15 72 20 141/87 H 02/09/20 00:48 80 15 137/85 02/08/20 23:36 36.7 C 107 H 24 134/72 Pulse Ox 02/09/20 07:05 100 02/09/20 03:00 100 02/09/20 02:47 97 02/09/20 01:15 99 02/09/20 00:48 98 02/08/20 23:36 98
--- NOTE | 2020-02-09 13:41 | History & Physical Bridge Note ---
Date of Service February 09, 2020 History & Physical Bridge Note I have examined the patient, reviewed the History & Physical and in the interval since the performance of the History & Physical I have noted the following changes of clinical significance: no changes noted
[2020-02-09] MEDS ORDERED: MIDAZOLAM HCL 1 MG/ML 2ML VIAL ONE (13:44)
[2020-02-09] MEDS ORDERED: fentaNYL citrate 100 MCG/2 ML VIAL ONE (13:44)
[2020-02-09] MEDS ORDERED: ONDANSETRON INJ 2 MG/ML 2 ML VIAL ONE (13:44)
[2020-02-09] MEDS ORDERED: PROPOFOL IV EMULSION 10 MG/ML 20 ML VIAL IV ONE (13:44)
[2020-02-09] MEDS ORDERED: LIDOCAINE HCL 2% 2 ML VIAL/AMP(20MG/ML) INFIL ONE (13:44)
[2020-02-09] MEDS ORDERED: CIPROFLOXACIN 400MG / 200ML D5W IV ONE (13:45)
[2020-02-09] MEDS ORDERED: BUPIVACAINE 0.5 % 5 MG/1 ML MPF 30ML VIAL ONE (13:55)
[2020-02-09] MEDS ORDERED: BACITRACIN OINT 15 GM TUBE ONE (13:55)
[2020-02-09] MEDS ORDERED: LIDOCAINE HCL 1% 20 ML VIAL ONE (13:55)
--- NOTE | 2020-02-09 13:59 | Anesthesiology Consultation ---
Date of Service February 09, 2020 Assessment & Plan (1) Encounter for pre-operative examination: Chart Review Chart Review: Acceptable Risk for Surgery Consults Requested none ASA ASA2 Proposed Anesthesia Anesthesia Type: General Risk / Benefits Reviewed With: PT / POA / Parent / Guardian, Accepts Plan and Informed Consent Obtained History Surgery Operation Date: 02/09/20 07:00 Proposed Procedures p Open Abdominal Wall Hernia Repair, Possible Mesh - Bere Starkey MD Height/Weight Height: 5 ft 6 in Weight: 97.6 kg Allergies Allergy/AdvReac Type Severity Reaction Status Date / Time Penicillins Allergy Severe SHORTNESS Verified 02/08/20 23:39 OF BREATH Medications Home Medications Medication Instructions Recorded Confirmed Last Taken No Known Home Medications 02/08/20 02/08/20 Unknown Active Medications Generic Name Dose Route Start Last Admin Trade Name Freq PRN Reason Stop Dose Admin Lactated Ringer's 1,000 mls @ 60 mls/hr 02/09/20 04:15 02/09/20 04:15 Lr IV 03/10/20 04:14 60 mls/hr .[id number] ANGELICA Administration NPO Date Last Intake of Fluids: 02/08/20 Time Last Intake of Fluids: 20:00 Date Last Intake of Solids: 02/08/20 Time Last Intake of Solids: 16:00 Past Medical History Medical History Hernia Hypertension Exercise / Class Metabolic Activity II 4-5 Yardwork/Stairs/Walk up hill Past Family History Family History Other No significant family history Past Surgical History Surgical History History of inguinal hernia repair Past Anesthesia History No Hx of Anesthesia Complications History of PONV No Hx of PONV Social History Smoking Status: Current some day smoker tobacco type: cigars Hx Alcohol Use: No Hx Substance Use: No substance use type: does not use Review of Systems Patient denies active symptoms of GERD. Negative for chest pain or shortness of breath. Physical Exam Vital Signs Last Vital Signs Temp 36.5 C 02/09/20 13:37 Pulse 64 02/09/20 13:37 Resp 18 02/09/20 13:37 BP 137/88 02/09/20 13:37 Pulse Ox 98 02/09/20 13:37 Constitutional + obese ENMT Mouth: no TMJ abnormality and oral opening not small Thyromental Distance: > or= 3.5 Finger Breadths Mallampati Class: III Neck normal visual inspection; neck extension not limited Respiratory normal respiratory effort Auscultation: lungs clear to auscultation bilaterally Cardiovascular Rate/Rhythm: regular rate and regular rhythm Heart Sounds: no murmur Neurologic moves all extremities Psychiatric Orientation: alert and oriented x 3 Testing Laboratory Results 02/09/20 05:17 02/09/20 05:17 PT 10.3 Seconds (9.0-12.0) 02/08/20 23:47 INR 1.0 (0.9-1.1) 02/08/20 23:47 APTT 27.3 Seconds (21.0-31.0) 02/08/20 23:47 Urine Color Yellow 02/09/20 02:00 Urine Appearance Clear (Clear) 02/09/20 02:00 Urine pH 6.5 (4.5-7.5) 02/09/20 02:00 Ur Specific [place] 1.037 (1.000-1.030) H 02/09/20 02:00 Urine Protein Negative (Negative) 02/09/20 02:00 Urine Glucose (UA) Negative (Negative) 02/09/20 02:00 Urine Ketones Negative (Negative) 02/09/20 02:00 Urine Nitrite Negative (Negative) 02/09/20 02:00 Ur Leukocyte Esterase Negative (Negative) 02/09/20 02:00 Electrocardiogram Date: 06/29/19 Findings: + ST @ (104) When compared with ECG of 02-NOV-2010 17:58, No significant change was found
[2020-02-09] MEDS ORDERED: SCOPOLAMINE 1.5 MG TDSY TD ONE (14:00)
[2020-02-09] MEDS ORDERED: ONDANSETRON INJ 2 MG/ML 2 ML VIAL IV PRN (14:07)
[2020-02-09] MEDS ORDERED: ePHEDrine sulfate 50 MG/ML AMP IV PRN (14:07)
[2020-02-09] MEDS ORDERED: ATROPINE SULFATE 0.1 MG/ML 10ML SYR IV PRN (14:07)
[2020-02-09] MEDS ORDERED: fentaNYL citrate 100 MCG/2 ML VIAL IV PRN (14:07)
[2020-02-09] MEDS ORDERED: ePHEDrine sulfate 50 MG/ML SYR ONE (14:42)
[2020-02-09] MEDS ORDERED: DEXAMETHASONE SOD INJ 4 MG/ML VIAL ONE (14:58)
[2020-02-09] MEDS ORDERED: ACETAMINOPHEN 1000 MG/100 ML IV IV ONE (15:06)
--- NOTE | 2020-02-09 15:36 | Post Operative Brief Note ---
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
--- NOTE | 2020-02-09 16:07 | Operative Report (OR) ---
DATE OF OPERATION: 02/09/2020 PREOPERATIVE DIAGNOSIS: Right-sided abdominal wall hernia, spigelian hernia, incarcerated hernia. POSTOPERATIVE DIAGNOSIS: Right-sided abdominal wall hernia, spigelian hernia, incarcerated hernia. OPERATIVE PROCEDURE: Open repair of right-sided abdominal wall hernia, spigelian hernia. SURGEON: Bere Starkey MD. ANESTHESIA: General. ESTIMATED BLOOD LOSS: About 10 mL. FINDINGS: Spigelian hernia sac resection and the hernia neck size about 0.8 x 0.8 cm. COMPLICATIONS: None. INDICATIONS FOR THE PROCEDURE: This is a 49-year-old gentleman who was admitted to the hospital for abdominal pain and the CT scan diagnosed a right-sided abdominal wall hernia with incarcerated hernia. I recommended to do the open repair of the right-sided abdominal wall hernia, possible mesh. I did talk to the patient about the benefit, the risk, alternate procedure. I indicated the risks may include but not limited to such as bleeding, infection, hernia recurrence, complication related to mesh. The patient understands. He signed informed consent and I answered all questions. DETAILS OF PROCEDURE: We brought the patient to the OR, put the patient in the supine position. The patient received SCD on bilateral legs to prevent DVT. Also, patient received 400 mg of Cipro IV for prophylactic antibiotic. The patient received general anesthesia without difficulty. Abdomen was prepped and draped in routine sterile fashion. After timeout, I injected local anesthesia on the right side of the abdomen by using 1% lidocaine mixed with 0.5% Marcaine. I then made about a 3 cm incision on the right side of the abdomen just above the hernia site, reached the subcutaneous layer. Then, we found the patient had a large hernia sac that contained fat tissue. Dissection reached the hernia neck, we found the patient had a small hernia neck opening about 0.8 x 0.8. We tried to reduce the fat tissue back to the abdominal cavity, but we could not because it was incarcerated. At this moment, I decided to do resection of the hernia sac with fat tissue using the Bovie and rechecked, no active bleeding. Again, rechecked the hernia neck size, only 0.8 x 0.8. So I decided to use 0 Ethibond to close the hernia defect interruptedly and the suture closed nicely, no tension. Hemostasis is obtained, now closed subcutaneous layer by using 2-0 Vicryl continuous running, closed skin by using 4-0 Vicryl continuous running. Then, we put the dressing on. The patient tolerated the procedure well. All instrument, needle and sponge count were correct x2 at the end of the case. The patient was transferred to recovery room in stable condition. I attest to the content of the Intraoperative Record and any orders documented therein. Any exception s are noted below.
--- NOTE | 2020-02-09 16:11 | Anesthesiology Progress Note ---
Date of Service February 09, 2020 Anesthesia Post Procedure Vital Signs Vital Signs: Temp Pulse Pulse Pulse Resp BP BP 02/09/20 16:05 75 14 128/71 02/09/20 15:57 36.3 C L 79 21 123/77 02/09/20 13:37 36.5 C 64 18 137/88 02/09/20 07:05 36.6 C 54 L 16 144/87 H 02/09/20 03:00 36.5 C 58 L 18 02/09/20 02:47 58 L 16 146/89 H 02/09/20 01:15 72 20 02/09/20 00:48 80 15 02/08/20 23:36 36.7 C 107 H 24 134/72 BP Pulse Ox 02/09/20 16:05 97 02/09/20 15:57 99 02/09/20 13:37 98 02/09/20 07:05 100 02/09/20 03:00 156/87 H 100 02/09/20 02:47 97 02/09/20 01:15 141/87 H 99 02/09/20 00:48 137/85 98 02/08/20 23:36 98 Pain Intensity Abdomen: Pain Intensity: 0 Transfer of Care Handoff Completed per policy Notes Mental Status: alert / awake / arousable and participated in evaluation Patient Amnestic to Procedure: Yes Nausea / Vomiting: adequately controlled Pain: adequately controlled Airway Patency, RR, SpO2: stable & adequate BP & HR: stable & adequate Hydration State: stable & adequate Anesthetic Complications: no major complications apparent and Pt Satisfied with anesthetic care
[2020-02-10 05:53] LABS: Hemoglobin 14.3 g/dL (14.0-18.0); Mean Corpuscular Hemoglobin 31.7 pg (25-34); Mean Corpuscular Volume 93.1 fL (80-100); Mean Platelet Volume 10.8 fL (7.4-10.4); Platelet Count 220 K/uL (130-400); RDW Coefficient of Variation 13.6 % (11.5-14.5); RDW Standard Deviation 46.7 fL (36.4-46.3); Red Blood Count 4.51 M/uL (4.7-6.1); White Blood Count 9.64 K/uL (4.8-10.8)
[2020-02-10] MEDS ORDERED: CIPROFLOXACIN / D5W 400 MG/200 ML BAG IV SCH (06:00)
[2020-02-10 06:20] LABS: Calcium 8.4 mg/dl (8.5-10.1); Creatinine Clr Calc Pharmacy 90.2 ml/min; Est GFR (African American) 93.7; Est GFR (Non-African American) 80.9; Potassium 4.1 mmol/L (3.5-5.1)
--- NOTE | 2020-02-10 07:06 | Surgery Progress Note ---
Date of Service F/U S/P repair spigelian hernia, POD 1, pt is doing fine, no significant abdominal pain, he tolerated diet. February 10, 2020 Assessment & Plan (1) Spigelian hernia: pt is a 49 year-old male who was admitted to hospital for spigelian hernia with incarcerated, IMP: abdominal pain, spigelian hernia, incarcerated hernia, Plan, I recommend to do open repair spigelian hernia possible with mesh, D/W benefits, risks and alternatives of the surgery, the risks - infection, blee ding, hernia recurrence, complications relate to mesh, pt and his family member understood, they agree with the surgery, i answered all questions, 02/10/2020 7:03AM pt is doing fine, pt can be discharged home today, post-op instruction was given, keep the dressing on for 4 days, he can take a shower on 02/14/2020, no heavy lifting > 25 LBS for 4 weeks, F/U me in 2 weeks, (2) Incarcerated hernia: (3) Abdominal pain: Subjective Pt was seen and examined Lying in bed with no distress Pt said that his abdominal pain a little better Pt said that his last BM was yesterday Denies any chest pain, palpitation, dizziness and SOB Review of Systems Constitutional: as per Subjective / HPI Eyes: as per Subjective / HPI Ear, Nose, Mouth, Throat: as per Subjective / HPI Respiratory: as per Subjective / HPI Cardiovascular: as per Subjective / HPI Additional Comments: HTN Gastrointestinal: as per Subjective / HPI repair left inguinal hernia Genitourinary: + as per Subjective / HPI Musculoskeletal: as per Subjective / HPI Integumentary: as per Subjective / HPI Neurologic: as per Subjective / HPI Psychiatric: as per Subjective / HPI Endocrine: as per Subjective / HPI Hematologic / Lymphatic: as per Subjective / HPI Physical Exam Constitutional: WD/WN, vitals as above well developed and well nourished Eyes: PERRL, conjunctivae normal, anicteric sclerae ENMT: external ear and nose normal, oropharynx normal Neck: trachea midline, no thyromegaly Respiratory: normal respiratory effort, lungs clear to auscultation Cardiovascular: RRR, no murmur, no edema Rate/Rhythm: regular rate and regular rhythm Heart Sounds: normal S1 and normal S2 Gastrointestinal (Abdomen): normal bowel sounds, soft, nontender, no hepatosplenomegaly Percussion/Palpation: abdomen soft mild tenderness at incision site, no redness, no drainage, no bulging on incision site, BS + Musculoskeletal: no cyanosis or clubbing, extremities motor strength 5/5 Skin: no rashes, warm and dry Neurologic: patellar DTR's 2+ bilat, sensation intact Psychiatric: Orientation: alert and oriented x 3 Results & Data Vital Signs (Past 12 Hours) Vital Signs Temp Pulse Resp BP Pulse Ox 02/10/20 03:13 36.8 C 67 16 129/65 97 02/09/20 22:57 36.7 C 65 16 130/78 97 02/09/20 19:35 36.5 C 76 16 134/78 96 Laboratory Results Abnormal lab results 02/10/20 02/10/20 Range/Units 05:25 05:25 RBC 4.51 L (4.7-6.1) M/uL RDW Std Deviation 46.7 H (36.4-46.3) fL MPV 10.8 H (7.4-10.4) fL Chloride 110 H (98-107) mmol/L BUN/Creatinine Ratio 9.0 L (10-20) Glucose 109 H (70-99) mg/dl Calcium 8.4 L (8.5-10.1) mg/dl
[2020-02-10] MEDS: LACTATED RINGER'S 1,000 ML IV SCH (11:30)
--- NOTE | 2020-02-10 12:47 | Hospitalist Progress Note ---
Date of Service February 10, 2020 Assessment & Plan (1) Abdominal pain: (2) Incarcerated hernia: Present on admission with worsening right side abdominal pain CT abd/pelvis showed a fat-containing hernia in the right lower quadrant. Minimal stranding is noted within the hernia sac. 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 Starkey No post-op complication Tolerate diet Pain control Surgery recommended to keep the dressing on for 4 days, Ok to shower on 02/14/2020, no heavy lifting > 25 LBS for 4 weeks, Follow up with surgery in 2 weeks (Please call to schedule for the appointment [phone]) Ok from surgical standpoint to discharge home Elevate lactate No source of infection Pt is afebrile and no Leukocytosis Received IVF Lactate normalize Elevate Blood Pressure Possible related to pain and hospital Not on any BP med Stable DVT px on SCD (Anticipate surgery ) CODE STATUS FULL CODE Disposition Discharge home today Admission and Anticipated Discharge Date Admission Date: February 09, 2020 Subjective Pt was seen and examined Lying in bed with no distress Pt said that he feels fine He denies any pain he said that he tolerated his diet Denies any chest pain, palpitation, dizziness and SOB Physical Exam Physical Exam: General- No acute distress Head- atraumatic Eyes- PERRL, EOMI, ENT- oropharynx clear Neck- supple, no JVD Lungs- clear to auscultation Heart- regular rhythm; no murmur Abdomen- normal bowel sounds, soft, +surgical dressing in right side abdominal Extremities- no calf tenderness Neuro- alert, oriented x 3; PERRL, EOMI; no facial palsy; no dysarthria Skin- warm & dry Results & Data Results & Data ([facility]) Vital Signs (Past 12 Hours) Vital Signs Temp Pulse Pulse Resp BP Pulse Ox 02/10/20 12:15 36.7 C 61 16 130/80 98 02/10/20 11:46 36.7 C 73 69 16 128/71 98 02/10/20 07:17 36.7 C 69 16 128/71 98 02/10/20 03:13 36.8 C 67 16 129/65 97
--- NOTE | 2020-02-10 22:11 | Discharge Summary ---
Date of Service February 10, 2020 Admission HPI Per Admitting Provider History obtained from patient, family, and records. Medical history significant for hypertension. One week history of achy intermittent right lower quadrant abdominal discomfort going to his back and across his belly associated with nausea. No fever, no chills. No chest pain, no S OB. Patient brought to ER by with worsening discomfort. 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 Admission Exam Per Admitting Provider GENERAL: Comfortable, obese, no respiratory distress SKIN: Normal color, warm HEENT: [place] palpebral conjunctivae, no ptosis, dry buccal mucosa NECK : Supple, short neck, no tenderness CHEST : CTA, no tenderness HEART : RRR, no obvious murmurs ABDOMEN: Some distention, right lower quadrant fullness/tenderness EXTREMITIES : No LE swelling/tenderness, no other conspicuous deformities noted NEUROLOGIC : Coherent, no facial asymmetry, no other gross focality Principal Diagnosis Abdominal pain: Incarcerated hernia: Elevate lactate Elevate blood pressure Discharge Exam General- No acute distress Head- atraumatic Eyes- PERRL, EOMI, ENT- oropharynx clear Neck- supple, no JVD Lungs- clear to auscultation Heart- regular rhythm; no murmur Abdomen- normal bowel sounds, soft, +surgical dressing in right side abdominal Extremities- no calf tenderness Neuro- alert, oriented x 3; PERRL, EOMI; no facial palsy; no dysarthria Skin- warm & dry Discharge Data Allergies Allergy/AdvReac Type Severity Reaction Status Date / Time Penicillins Allergy Severe SHORTNESS Verified 02/08/20 23:39 OF BREATH Consultations 02/09/20 01:10 ED Decision to Admit Stat 02/09/20 03:21 Consult General Surgery Routine Procedures Performed Operation Date: 02/09/20 07:00 Actual Procedures p Open Abdominal Wall Hernia Repair(Right) - Bere Starkey MD Ordered Studies 02/08/20 23:52 CT abd pelvis IV con only Urgent CT SCAN OF THE ABDOMEN AND PELVIS WITH IV CONTRAST CLINICAL HISTORY: Right-sided abdominal pain. COMPARISON STUDY: No priors. TECHNIQUE: Following the IV administration of 93 cc of Optiray 320, CT scan of the abdomen and pelvis is performed from the lung bases to the proximal femora. Images are reviewed in the axial, sagittal, and coronal planes. IV contrast was administered without complication. A dose lowering technique was utilized adhering to the principles of ALARA. CT DOSE: 883.46 mGy.cm FINDINGS: Lung bases: The heart is normal in size and without pericardial effusion. The lung bases are clear noting dependent atelectasis. There is a small hiatal hernia. Liver: The contrast-enhanced liver is normal in size, contour, and attenuation. There is no intrahepatic biliary ductal dilatation. The hepatic veins and portal veins are patent. Gallbladder: Unremarkable. Spleen: Normal in size and attenuation. Pancreas: Unremarkable. Adrenal glands: Unremarkable. Kidneys: The contrast enhanced kidneys are normal in size and without hydronephrosis. The kidneys enhance symmetrically. Scattered subcentimeter cortical hypodensities likely represent cysts but are too small for definitive characterization. Parapelvic cysts are noted on the left. Abdominal vasculature: The abdominal aorta is normal in course and caliber. Bowel: There is mild colonic diverticulosis without CT evidence of acute diverticulitis. No bowel obstruction is identified. The appendix is well- visualized and normal. Peritoneum: There is no intraperitoneal free air or abdominal ascites. There is a fat-containing umbilical hernia. There is a fat-containing hernia in the right lower quadrant seen on image #249. Minimal stranding is noted in the hernia sac. Lymphadenopathy: None. Pelvic viscera: The bladder, prostate, and seminal vesicles are normal as visualized. There is evidence of previous left inguinal herniorrhaphy. Skeletal structures: No lytic or blastic lesions are seen. Mild lumbosacral spondylosis is noted. There are bilateral pars defects at L5. IMPRESSION: 1. There is a fat-containing hernia in the right lower quadrant. Minimal stranding is noted within the hernia sac. 2. Mild colonic diverticulosis without CT evidence of acute diverticulitis. 3. Additional findings as above. ACT 112: Negative or not required by law. Electronically signed by: Phillip Bae M.D. 02/09/2020 7:46 AM Dictated: 02/09/20741 Transcribed: 02/09/20741 Hospital Course (1) Abdominal pain: Possible incarcerated spigelian hernia on initial CT read Hypertension, elevated secondary to discomfort Not on maintenance meds at home. OBS F Surgery consult RE abdominal pain, spigelian hernia on CT (ER provider already in touch with Dr. Carnes.) Bowel rest until patient seen by surgeon. IVF, analgesia Initiate lisinopril maintenance Rx if BP continues to be uncontrolled. DVT prophylaxis with SCDs Full code Text document was generated using [employer] voice recognition software. It may contain grammatical or spelling errors. Kindly contact undersigned for clarification of any documentation item in question. (2) Incarcerated hernia: Present on admission with worsening right side abdominal pain CT abd/pelvis showed a fat-containing hernia in the right lower quadrant. Minimal stranding is noted within the hernia sac. 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 Starkey No post-op complication Tolerate diet Pain control Surgery recommended to keep the dressing on for 4 days, Ok to shower on 02/14/2020, no heavy lifting > 25 LBS for 4 weeks, Follow up with surgery in 2 weeks (Please call to schedule for the appointment [phone]) Ok from surgical standpoint to discharge home Elevate lactate No source of infection Pt is afebrile and no Leukocytosis Received IVF Lactate normalize Elevate Blood Pressure Possible related to pain and hospital Not on any BP med Stable DVT px on SCD (Anticipate surgery ) CODE STATUS FULL CODE Disposition Discharge home today Total Time Total Time Spent Total Time Spent (In Minutes): 35 minutes Total Time Includes: Examination of the Patient, Discharge Planning, Medication Reconciliation, Communication With Other Providers and Other Discharge Plan Discharge Items Patient Disposition: Home - Self-Care Reason For Visit: ABDOMINAL PAIN Discharge Diagnosis: Abdominal pain: Incarcerated hernia: Elevate lactate Elevate blood pressure Activity: Resume your previous activity Non-emergency contact: Primary Care Provider Call non-emergency contact if: you have any medication questions and your temperature is above 101 Follow-up/Referrals: Holdne Centeno MD [Primary Care Provider] - 02/16/20 9:40 am (02/16/2020 9:40 AM Provider Holden Centeno MD Department Family Practice [facility] Bere Starkey MD [Physician] - 02/18/20 11:45 am Diet: Regular Addtl Attending Provider Instructions: Follow up with your primary care provider Dr. Centeno on 02/15 @ 9:40 AM Follow up with surgery in 2 weeks. Please call office @ [phone] to schedule for the appointment No heavy lifting over 25 pounds for 4 weeks No strenuous activity until cleared by surgeon No submerging incisions underwater for 2 weeks (no swimming, bathing, hot tubs) but you may shower and gently clean the incisions with soap and water and pat dry. Walking and light activities encouraged daily to prevent blood clots from forming Addtl Intelligence Operations Specialist Provider Instructions: Surgical discharge instructions: - No heavy lifting over 25 pounds for 4 weeks - No strenuous activity until cleared by surgeon. Walking is encouraged daily to prevent blood clots forming in your legs. - You may shower in 4 days, sponge bath around incision and dressing and wash hair in meantime. After 4 days, remove dressing and shower. Let water run over area and pat dry. - You may take extra strength Tylenol and Ibuprofen as needed for mild pain. -600 mg Ibuprofen every 6 hours as needed (take with food) - 650 mg Tylenol every 6 hours as needed -Follow-up surgical office in 2 weeks. Call office at [phone] to make an appointment. Pending Studies at Discharge: No Visit Report Forms: Smoking Cessation Stand-Alone Forms: [facility], [facility], Work/School Release (Inpt), Smoking Cessation Medications and DC Order Prescriptions: No Action No Known Home Medications RF: 0 Discharge Orders: Discharge Order (Routine); Ordered 02/10/20 Ordered By: Edgard Estrada/Other Patient Handouts: What Is a Hernia?, Hernia Repair Surgery Admission Data Admit Date/Time: 02/09/20 02:15 Attending Provider: Edgard Locke Admit Provider: Marvin Mariee Primary Care Provider: Holden Centeno Other Providers: Marvin Mariee ; Manfred Carnes Other Interventions: Discharge Summary Assessment (RN) Last Done: 02/10/20 11:46 DC Date/Time DO NOT enter until pt leaves facility: 02/10/20 14:00
== END 2020-02-10 14:00 | disposition home or self-care (01) ==
LOC: ED 23:32 → 3E 23:32